=== PATIENT | female | born 2000 | race Caucasian/White ===

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

== ENCOUNTER 2021-06-25 15:38 | Emergency (ER) | payer OTHER ==
[2021-06-25 16:11] VITALS: BP 109/65; PULSE 65; TEMP 98.5; BMI 30.2
[2021-06-25] MEDS ORDERED: IBUPROFEN 600 MG TABLET (FP) PO ONE ×2 (18:10→18:14)
== END 2021-06-25 18:21 | disposition home or self-care (01) ==
LOC: JERFT 15:38
DX: S69.91XA Unspecified injury of right wrist, hand and finger(s), initial encounter (principal); Y93.21 Activity, ice skating
CPT/HCPCS: 99283-25

== ENCOUNTER 2023-01-04 11:48 | Emergency (ER) | payer OTHER ==
[2023-01-04 11:59] VITALS: BP 109/65; PULSE 95; RESP 18; TEMP 99.8; BMI 33.3
[2023-01-04] MEDS ORDERED: ACETAMINOPHEN 500 MG TABLET (FP) PO ONE (12:36)
[2023-01-04] MEDS ORDERED: ACETAMINOPHEN 500 MG TABLET (FP) ONE (12:39)
[2023-01-04] MEDS ORDERED: AMOXICILLIN 500 MG CAPSULE (FP) PO ONE (12:47)
[2023-01-04] MEDS ORDERED: AMOX TR/POT CLAV 500MG/125MG TABLETS (FP) ONE (12:51)
== END 2023-01-04 13:24 | disposition home or self-care (01) ==
LOC: JERFT 11:48
DX: R07.0 Pain in throat (principal); R50.9 Fever, unspecified; M79.10 Myalgia, unspecified site; R13.10 Dysphagia, unspecified; J02.9 Acute pharyngitis, unspecified; J03.90 Acute tonsillitis, unspecified; Z20.822 Contact with and (suspected) exposure to COVID-19
CPT/HCPCS: 0241U-QW; 99283-25

== ENCOUNTER 2024-12-24 19:50 | Emergency (ER) | payer OTHER ==
[2024-12-24 19:59] VITALS: BP 110/62; PULSE 60; RESP 18; TEMP 98.9; BMI 31.3
[2024-12-24] MEDS ORDERED: ACETAMINOPHEN INJECTION 100 ML ONE (21:13)
[2024-12-24] MEDS ORDERED: IBUPROFEN 400 MG TABLET (FP) PO ONE (21:13)
[2024-12-24] MEDS: IBUPROFEN 600 MG TABLET (FP) PO ONE (21:18)
[2024-12-24] MEDS: ACETAMINOPHEN 1000 MG/100 ML BAG IVPB ONE (21:19)
[2024-12-24] MEDS: SODIUM CHLORIDE 0.9% 500 ML INFUS.BAG IV ONE (21:19)
[2024-12-24 21:21] LABS: ABSOLUTE IMMATURE GRANULOCYTES 0.05 x10^3/uL (0.0-0.031); BASOPHILS # 0.06 x10^3/uL (0.01-0.08); EOSINOPHIL % 5.1 % (0.7-5.8); EOSINOPHILS # 0.59 x10^3/uL (0.04-0.36); HEMATOCRIT 39.4 % (34.1-44.9); HEMOGLOBIN 13.3 g/dL (11.2-15.7); MCHC 33.8 g/dl (32.2-35.5); MEAN CELL VOLUME 82.4 fl (79.4-94.8); MEAN PLT VOLUME 9.6 fl (9.4-12.3); MONOCYTE # 0.69 x10^3/uL (0.24-0.86); PLATELET COUNT 302 x10^3/uL (182-369); RDW 12.6 % (12.1-16.5)
[2024-12-24 21:21] LABS: URINE APPEARANCE CLEAR; URINE BILIRUBIN NEGATIVE (NEGATIVE); URINE COLOR YELLOW; URINE GLUCOSE (UA) NEGATIVE (NEGATIVE); URINE KETONE NEGATIVE (NEGATIVE); URINE LEUK ESTERASE NEGATIVE (NEGATIVE); URINE NITRITE NEGATIVE (NEGATIVE); URINE PROTEIN NEGATIVE (NEGATIVE); URINE UROBILINOGEN 0.2 mg/dL (0.2-1.0)
[2024-12-24 21:24] LABS: HCG,QUALITATIVE URINE Negative
[2024-12-24 21:43] LABS: POTASSIUM 3.8 mmol/L (3.5-5.1)
[2024-12-24 21:46] LABS: ALBUMIN 4.1 g/dl (3.4-5.0); BLOOD UREA NITROGEN 11.9 mg/dL (7-18); CALCIUM 10.1 mg/dL (8.5-10.1)
[2024-12-24 21:49] LABS: CREATININE 0.6 mg/dL (0.55-1.3)
[2024-12-24 21:51] LABS: BILIRUBIN,TOTAL 0.4 mg/dL (0.2-1); TOT PROT 7.6 g/dl (6.4-8.2)
[2024-12-24 22:40] LABS: HCV DIAGNOSTIC IN-HOUSE W/RFLX NON-REACTIVE (NONREACTIVE); HIV INTERPRETATION NEGATIVE (NEGATIVE)
== END 2024-12-25 00:35 | disposition home or self-care (01) ==
LOC: JER 19:50
PROC: 3E033NZ Introduction of Analgesics, Hypnotics, Sedatives into Peripheral Vein, Percutaneous Approach (ICD-10-PCS; principal; 2024-12-24)
DX: R10.2 Pelvic and perineal pain (principal); R10.31 Right lower quadrant pain; R10.32 Left lower quadrant pain; R11.0 Nausea; R30.0 Dysuria
CPT/HCPCS: 36415; 76830-TC; 80053; 81003; 83605; 83690; 84703; 85025; 86803; 87086; 87389; 87491; 87591; 87661; 99285-25